=== PATIENT | female | born 1975 | race African-American/Black ===

== ENCOUNTER → 2017-05-07 | Outpatient (CLI) | payer OTHER ==
[~2017-05-07] MED LIST: IBUPROFEN800 MG PO; METFORMIN HCL850 MG PO; NEURONTIN800 MG; PRAVASTATIN SOD40 MG PO; TOPAMAX; TYLENOL #3 PO; ZESTRIL10 M1 PO
--- NOTE | ~2017-05-07 | CR63 ---
[facility] A Service of [facility] RADIOLOGY TEXT RESULTS PATIENT: SHAN HOUSER LOCATION: [facility] : 71 UNIT #: [id number] AGE: [address]: Michi Naranjo MD SEX: F ORDER DR: [id number] [facility] [address] [place], [place] [address] [id number] O MR#: [id number] Acc #: [id number] NAME: SHAN HOUSER : 1975 SEX: F STUDY DATE/TIME: 05/07/2017 13:26 UNIT: [facility] ROOM: STUDY DESCRIPTION: CR Chest 2 View Attending Physician: Michi Naranjo M.D. Referring Physician: Michi Naranjo M.D. Ordering Physician: Michi Naranjo M.D. Primary Care Physician: Saulo Hernandez M.D. MEDICAL IMAGING REPORT This report is preliminary unless electronic signature is present EXAM Chest, 05/07/2017; [facility]. HISTORY 41-year-old woman preop clearance for arthroscopy right shoulder with rotator cuff repair. Torn rotator cuff. COMPARISON None. FINDINGS Two-view chest demonstrates normal cardiac size and configuration. Hilar structures and mediastinal contours are preserved. Bilateral lungs are expanded and clear. Large body habitus noted. IMPRESSION Negative chest. Dictated by... Emil Villa M.D. THIS IS AN ELECTRONICALLY VERIFIED REPORT Emil Villa M.D. at 05/08/2017 8:10 AM Valerio TD: 05/07/2017 16:24 JOB #: [id number] MEDICAL IMAGING REPORT Page 1 of 1 COPY
[2017-05-07 12:44] LABS: HEMOGLOBIN 14.4 gm/dL (12.0-16.0); MEAN CORPUSCULAR HEMOGLOBIN 28.1 PG (28-34); MEAN CORPUSCULAR HGB CONC 32.7 g/dL (30-36); MEAN PLATELET VOLUME 8.5 FL (6.5-11.5); RED BLOOD COUNT 5.12 X10e (3.90-5.30); RED CELL DISTRIBUTION WIDTH 13.4 % (11.0-15.5); WHITE BLOOD COUNT 4.5 X10e3 (4.0-10.5)
[2017-05-07 12:45] LABS: URINE APPEARANCE CLEAR; URINE BILIRUBIN NEG (NEG); URINE BLOOD NEG (NEG); URINE COLOR YELLOW; URINE GLUCOSE 100 MG/DL (NEG); URINE KETONE NEG (NEG); URINE LEUKOCYTE ESTERASE NEG (NEG); URINE NITRATE NEG (NEG); URINE PH 5.5 (5-8); URINE PROTEIN NEG (NEG); URINE SPECIFIC GRAVITY 1.016 (1.003-1.035)
[2017-05-07 12:49] LABS: CULTURE INDICATED? NO
[2017-05-07 13:22] LABS: BUN/CREATININE RATIO 11.25; CALCIUM SERUM 9.6 mg/dL (8.4-10.2); CREATININE SERUM 0.8 mg/dL (0.6-1.4); GLOM FILT RATE Estimated 104.7 mL/min (>60); POTASSIUM 3.8 mmol/L (3.5-5.1)
== END | disposition home or self-care (01) ==
LOC: CAMB 12:14
PROVIDERS: Orthopaedic Surgery
DX: Z01.818 Encounter for other preprocedural examination (principal); M75.101 Unspecified rotator cuff tear or rupture of right shoulder, not specified as traumatic
CPT/HCPCS: 36415; 71020; 80048; 81003; 85027

== ENCOUNTER → 2017-05-09 | Day surgery (SDC) | payer OTHER ==
--- NOTE | ~2017-05-09 | OR ---
Unit #: [id number] #: [id number] Patient: SHAN HOUSER [id number] [address] [address] [id number] O MR#: [id number] NAME: SHAN HOUSER ROOM: Date of Procedure: 05/09/2017 Admission Date: 05/09/2017 Surgeon: Michi Naranjo M.D. : 1975 Attending Physician: Michi Naranjo M.D. Referring Physician: Michi Naranjo M.D. Primary Care Physician: Saulo Hernandez M.D. OPERATIVE REPORT PREOPERATIVE DIAGNOSIS Impingement syndrome with focal supraspinatus tear. POSTOPERATIVE DIAGNOSIS Impingement syndrome with tendinopathy. PROCEDURES PERFORMED Arthroscopy and subacromial decompression of right shoulder. HISTORY AND FINDINGS The patient is a 41-year-old, who has been having pain in her shoulder which had been treated conservatively with medications and injections and she continued to have persistent symptoms. She had an MRI, which was suggestive of focal cuff tear and was offered arthroscopic evaluation. Procedure was explained including risks of anesthesia and complications of surgery like infection, neurovascular injury, stiffness, residual symptoms, need for further surgery, and the patient voices understanding and wishes to proceed. DESCRIPTION OF PROCEDURE After induction of general anesthesia, the patient was placed in the beach chair position with the right shoulder prepped and draped in the usual sterile manner. Time-out was called. Operative site was confirmed, and the right shoulder was infiltrated with 1% Xylocaine with epi. Following which, posterior portal was established and arthroscopy was performed. The superior labrum and the biceps anchor were checked and were found to be intact. Anterior labrum and glenohumeral ligaments were found to be normal. Inferior labrum and recess were intact. No loose body was identified. The glenohumeral joint and the posterior labrum were found to be normal. The biceps tendon was followed to the intertubercular sulcus. The subscapularis was found to be normal and the intertubercular sulcus and the biceps tendon were found to be normal. The supraspinatus and the infraspinatus insertion were then checked. No intra-articular disruption of the supraspinatus was identified nor of the infraspinatus. Posterior cuff was then examined and was found to be intact. The glenohumeral joint was grossly intact. At this point, the scope was withdrawn and introduced into the subacromial space and a lateral portal was established. At this point, subacromial decompression was performed starting with bursectomy and anterior acromioplasty. After adequate decompression, the bursal side of the cuff was then examined. No tear was identified. So, after adequate decompression of shoulder, wound was irrigated and 4-0 nylon was used to approximate the skin. Sterile compression dressing and a sling Unit #: [id number] #: [id number] Patient: SHAN HOUSER immobilization was given. Blood loss was approximately 10 mL. The patient received preop antibiotics, tolerated the procedure well, was transferred to the recovery room in satisfactory condition. POSTOPERATIVE INSTRUCTIONS 1. Ice packs to the right shoulder and range of motion to the finger and shoulder. 2. [place] 7.5 mg p.o. q.6 hours p.r.n. 3. She was given a followup appointment to return to my office in 1 week and if any problems to contact me. Dictated by... Cielo Rosa/karen TD: 05/10/2017 13:18 JOB #: [id number] OPERATIVE REPORT Page 1 of 1 X Michi Naranjo MD X PROCEDURE OPERATIVE NOTE
== END | disposition home or self-care (01) ==
LOC: CSUR 10:13
DX: M75.41 Impingement syndrome of right shoulder (principal); M19.90 Unspecified osteoarthritis, unspecified site; E11.9 Type 2 diabetes mellitus without complications; G47.30 Sleep apnea, unspecified; E66.01 Morbid (severe) obesity due to excess calories; Z79.84 Long term (current) use of oral hypoglycemic drugs; Z98.890 Other specified postprocedural states; Z98.51 Tubal ligation status; Z90.710 Acquired absence of both cervix and uterus; Z68.42 Body mass index [BMI] 45.0-49.9, adult; Z88.8 Allergy status to other drugs, medicaments and biological substances
CPT/HCPCS: 82947; J0171; J0330; J0690; J1030; J2250; J2370; J2405; J2710; J2795; J3010